=== PATIENT | male | born 1965 | race Caucasian/White ===

== ENCOUNTER 2023-09-20 19:47 | Emergency (ER) | payer OTHER ==
[~2023-09-20] VITALS: Ht 172.7 cm; Wt 81.0 kg
[2023-09-20 20:04] VITALS: TEMP 97.6; O2SAT 98
[2023-09-20] MEDS ORDERED: MECLIZINE 25MG TABLET PO ONE (20:30)
[2023-09-20 20:48] LABS: BASOPHILS % 0.6 % (0.0-2.0); HEMATOCRIT. 42.4 % (42.0-52.0); HEMOGLOBIN. 14.5 g/dL (14.0-18.0); LYMPHOCYTES % 19.1 % (20.0-50.0); MEAN CORPUSCULAR HEMOGLOBIN 29.5 pg (28.0-32.0); MEAN CORPUSCULAR HGB CONC 34.2 g/dL (31.0-37.0); MEAN CORPUSCULAR VOLUME 86.4 fL (80.0-94.0); MEAN PLATELET VOLUME 7.4 fl (7.4-10.4); MONOCYTES % 8.6 % (2.0-8.0); NEUTROPHILS % 69.7 % (40.0-76.0); PLATELET 276 x1000/uL (130-400); RED BLOOD CELL COUNT 4.91 mill/uL (4.7-6.1); WHITE BLOOD COUNT 6.7 x1000/uL (4.5-11.0)
[2023-09-20 21:08] LABS: ALANINE AMINOTRANSFERASE 23 IU/L (10-49); ALBUMIN 4.5 g/dL (3.2-4.8); ASPARTATE AMINOTRANSFERASE 19 IU/L (<34); BILIRUBIN TOTAL 0.3 mg/dL (0.1-1.0); CALCIUM 8.8 mg/dL (8.7-10.4); CARBON DIOXIDE 24 mEq/L (21-32); CHLORIDE 109 mEq/L (98-107); CREATININE 0.9 mg/dL (0.6-1.3); GLUCOSE 96 mg/dL (70-105); POTASSIUM 3.8 mEq/L (3.5-5.1); PROTEIN TOTAL 6.9 g/dL (6.0-8.3); SODIUM 139 mEq/L (136-145); UREA NITROGEN BLOOD 18 mg/dL (9-23)
[2023-09-20] MEDS: MECLIZINE 12.5MG TABLET PO NR (21:32)
[2023-09-20] MEDS: METOCLOPRAMIDE HCL 10MG/2ML VIAL IV ONE (21:33)
[2023-09-20] MEDS: KETOROLAC 15MG/ML VIAL IV ONE (21:33)
[2023-09-20] MEDS ORDERED: MECL-299 MT (23:05)
[2023-09-20 23:39] VITALS: BP 150/98; PULSE 76; RESP 20
== END 2023-09-21 | disposition home or self-care (01) ==
LOC: ER 19:47
DX: I10 Essential (primary) hypertension (principal); R51.9 Headache, unspecified; Z90.49 Acquired absence of other specified parts of digestive tract
CPT/HCPCS: 99285; 96374; 70450; 96375; 80053; 85025; 36415; 93005; J8597; J1885; J2765